=== PATIENT | male | born 1955 | race Caucasian/White ===

== ENCOUNTER 2018-06-13 13:49 | Outpatient (CLI) | payer BC ==
--- NOTE | 2018-06-13 16:22 | ULT ---
RENAL DOPPLER ULTRASOUND OF TRANSPLANT KIDNEY 06/13/18 HISTORY: Evaluate renal transplant for renal artery stenosis. TECHNIQUE: Multiplanar doyle scale sonographic imaging of transplanted kidney in the right lower quadrant vesta d. Transplanted kidney is assessed with color flow and spectral analysis to assess the arterial and v enous structures. FINDINGS: The [place] kidneys are atrophic and echogenic measuring 7 cm craniocaudal dimension on the right and approximately 8.5 cm craniocaudal dimension on the left. Detailed assessment of bilateral [place] kidn eys limited. Renal transplant in the right lower quadrant measures 12.8 x 6.7 x 6.6 cm. No hydronephrosis noted. R esistive index of interrogated arterial structures of transplanted kidney are 0.71. Transplanted renal artery and vein are patent and demonstrate appropriate waveforms. Adjacent right c ommon iliac artery is patent. Peak systolic velocity of transplanted renal artery measures up to 81 c m/s and peak systolic velocity of adjacent common iliac artery is 58 cm/s. Transplanted renal artery to aortic ratio is 1.4, within normal limits. IMPRESSION: No doppler evidence for hemodynamically significant stenosis. POS: [facility]
== END 2018-06-13 13:50 | disposition home or self-care (01) ==
LOC: BICULT 13:49
DX: Z48.22 Encounter for aftercare following kidney transplant (principal)
CPT/HCPCS: 76775

== ENCOUNTER 2023-08-23 14:55 | Day surgery (SDC) | payer MEDICARE, BC ==
[2023-08-23] MEDS ORDERED: Fluorouracil 100 MG, Enoxaparin 25 MG, EPINEPHrine 0.3 MG in Ophthalmic Irrigation Solu... IRR SCH (15:00)
[2023-08-23] MEDS ORDERED: PHENYLephrine 2.5% Ophth Soln 15 ml Bottle ONE (15:42)
[2023-08-23] MEDS ORDERED: Cyclopentolate 0.5% Opth Drops 15 ML BOT ONE (15:42)
[2023-08-23] MEDS ORDERED: PROPOFOL 20 ML ONE (16:37)
[2023-08-23] MEDS ORDERED: Lidocaine 1% PF 5 ML VIAL ONE ×2 (16:37→17:24)
[2023-08-23] MEDS ORDERED: Rocuronium Bromide 10 MG/ML (10ML VIAL) ONE (16:37)
[2023-08-23] MEDS ORDERED: Vasopressin 20 UNITS/ML VIAL ONE (16:43)
[2023-08-23] MEDS ORDERED: Hydrocortisone Sod Succ/PF 100 mg/2 ml Vial ONE (17:23)
[2023-08-23] MEDS ORDERED: Enoxaparin 30 MG (0.3 mL) SYRINGE ONE (17:24)
[2023-08-23] MEDS ORDERED: Maxitrol 0.1% Opth Oint 3.5 GM TUBE ONE (17:24)
[2023-08-23] MEDS ORDERED: Triamcinolone 40 MG/ML VIAL ONE (17:24)
[2023-08-23] MEDS ORDERED: Bupivacaine 0.75% 10 ML VIAL ONE (17:24)
[2023-08-23] MEDS ORDERED: CEFAZOLIN 1 GM VIAL ONE (17:24)
[2023-08-23] MEDS ORDERED: Lidocaine 4% PF 5 ML AMP ONE (17:24)
[2023-08-23 17:31] LABS: Anion Gap 13 mmol/L (10-20); BUN (Urea Nitrogen) 65 mg/dL (8.4-25.7); Calc. Creatinine Clearance 0 mL/min (70-130); Calcium 9.2 mg/dL (7.8-10.44); Carbon Dioxide 23 mmol/L (23-31); Chloride 109 mmol/L (98-107); Estimated GFR 10; Glucose 121 mg/dL (80-115); Potassium 5.8 mmol/L (3.5-5.1); Sodium 139 mmol/L (136-145)
[2023-08-23] MEDS ORDERED: SUGAMMADEX SODIUM 200 MG/2 ML VIAL ONE (18:05)
[2023-08-23] MEDS ORDERED: Dexamethasone 4 mg/ml Vial ONE (18:06)
[2023-08-23] MEDS ORDERED: Ondansetron PF 4 MG/2 ML Vial ONE (18:06)
[2023-08-23] MEDS ORDERED: Metoclopramide HCl 10 MG (2 mL) VIAL ONE (18:08)
== END 2023-08-23 19:27 | disposition home or self-care (01) ==
LOC: SDC/OP 14:55
PROVIDERS: ATTEND Ophthalmology Retina Specialist
PROC: 08T53ZZ Resection of Left Vitreous, Percutaneous Approach (ICD-10-PCS; principal; 2023-08-23)
DX: H33.002 Unspecified retinal detachment with retinal break, left eye (principal); Z88.8 Allergy status to other drugs, medicaments and biological substances
CPT/HCPCS: 80048; J0171; J1100; J1650; J1720; J2405; J2704; J2765; J9190